=== PATIENT | female | born 2000 | race Caucasian/White ===

== ENCOUNTER 2021-12-02 16:07 | Emergency (ER) | payer MEDICAID ==
[~2021-12-02] VITALS: Ht 165.1 cm; Wt 81.6 kg
--- NOTE | 2021-12-02 17:13 | NUR ---
URINE COLLECTED AND SENT TO THE LAB
[2021-12-02] MEDS ORDERED: IV NS 0.9% 1,000 ML BAG IV ONE (17:30)
--- NOTE | 2021-12-02 17:49 | NUR ---
IV LINE IS ESTABLISHED, BLOOD SPECIMEN COLLECTED AND SENT TO THE LAB. THE LINE IS SALINE LOCKED.
[2021-12-02 18:05] LABS: BASOPHILS % (AUTO) 0.3 % (0.0-2.0); EOSINOPHILS % (AUTO) 0.8 % (0.0-6.0); HEMATOCRIT 33 % (33-45); HEMOGLOBIN 10.6 g/dL (11.5-14.8); LYMPHOCYTES # (AUTO) 1.8 K/uL (0.8-4.8); LYMPHOCYTES % (AUTO) 20.5 % (20.0-44.0); MEAN CORPUSCULAR HGB CONC 33 g/dl (31.0-36.0); MEAN CORPUSCULAR VOLUME 72 fL (82-100); MONOCYTES # (AUTO) 0.4 K/uL (0.1-1.30); MONOCYTES % (AUTO) 4.9 % (2.0-12.0); NEUTROPHILS # (AUTO) 6.5 K/uL (1.8-8.9); NEUTROPHILS % (AUTO) 73.5 % (43.0-81.0); PLATELET COUNT (AUTO) 330 K/uL (150-450); WHITE BLOOD COUNT (AUTO) 8.8 K/uL (4.3-11.0)
[2021-12-02] MEDS ORDERED: FERR325T23 PO (18:31)
[2021-12-02 18:45] LABS: CALCIUM, SERUM 9.5 mg/dL (8.5-10.1); CREATININE 0.5 mg/dL (0.6-1.3); POTASSIUM 4.3 mmol/L (3.5-5.1)
[2021-12-02 18:46] LABS: ALCOHOL, BLOOD < 3 mg/dL (0-0)
[2021-12-02 18:47] LABS: ACETAMINOPHEN < 0 ug/ml (10-30)
[2021-12-02 18:51] LABS: BILIRUBIN,DIRECT 0.2 mg/dL (0.0-0.2); BILIRUBIN,TOTAL 0.6 mg/dL (0.2-1.0); TOTAL PROTEIN, SERUM 7.9 g/dL (6.4-8.2)
--- NOTE | 2021-12-02 19:13 | NUR ---
REPORT GIVEN TO NURSE MOORE FOR JOSH
--- NOTE | 2021-12-02 19:25 | NUR ---
[id number] FRM [facility] C/O LLE PAIN S/P MISSED A STEP AND FALLING. NO GROSS DEFORMITIES OR TRAUMA NOTED TO EXTREMITY. PATIENT AM,BULATORY WITH STEADY GAIT. PT IN GOWN AND V/S STABLE.
--- NOTE | 2021-12-02 19:26 | NUR ---
Patient discharged to home in stable condition. Written and verbal after care instructions given. Patient verbalizes understanding of instruction.
[2021-12-02 19:32] VITALS: BP 112/57
[2021-12-02 20:16] LABS: LYMPHOCYTES % (MANUAL) 19 % (16-48); MONOCYTES % (MANUAL) 2 % (0-11.0); NEUTROPHILS % (MANUAL) 79 (42-76)
== END 2021-12-02 19:33 | disposition home or self-care (01) ==
LOC: ER 16:10
DX: R55 Syncope and collapse (principal); D64.9 Anemia, unspecified; M79.605 Pain in left leg; F32.A Depression, unspecified; W10.9XXA Fall (on) (from) unspecified stairs and steps, initial encounter; Y93.89 Activity, other specified; Y92.89 Other specified places as the place of occurrence of the external cause; Y99.8 Other external cause status
CPT/HCPCS: 36415; 80048; 80076; 80143; 80307; 80320; 82962; 84703; 85007; 85025; 93005; 96360; 99284; J7030; G0480

== ENCOUNTER 2022-11-16 15:35 | Emergency (ER) | payer MEDICAID ==
[~2022-11-16] VITALS: Ht 154.9 cm; Wt 102.1 kg
[~2022-11-16 15:35] MED LIST: FERR325T23 PO
[2022-11-16 15:41] VITALS: BP 146/71
--- NOTE | 2022-11-16 15:41 | NUR ---
Note vickie in EDM - 11/16/22 at 2020 by ANNABEL NICKY [id number] "Right Knee pain denies injury or trauma". PT A/Ox4. Tolerating R/A well with no resp distress. Safety Measures in place.
--- NOTE | 2022-11-16 19:05 | NUR ---
1541 BIBA [id number] "Right Knee pain denies injury or trauma". PT A/Ox4. Tolerating R/A well with no resp distress. Safety Measures in place.
--- NOTE | 2022-11-16 20:19 | NUR ---
Updated Yanely (mother) [phone]
--- NOTE | 2022-11-16 20:28 | NUR ---
PT SIGNED WAIVER FORM; NOTIFIED RADIOLOGY
--- NOTE | 2022-11-16 20:49 | NUR ---
FURNITURE SHAMPOOER AT PT'S BEDSIDE
[2022-11-16] MEDS ORDERED: NAPR-1009 PO (21:45)
[2022-11-16] MEDS ORDERED: ONDANSETRON 4 MG TAB.RAPDIS ONE (21:52)
[2022-11-16] MEDS ORDERED: ONDANSETRON 4 MG TAB.RAPDIS SL ONE (22:00)
[2022-11-16] MEDS ORDERED: NAPROXEN 250 MG TABLET ONE (22:03)
--- NOTE | 2022-11-16 22:16 | NUR ---
Patient discharged to home in stable condition via [facility]. RX Written and verbal after care instructions given. Patient verbalizes understanding of instruction.
[2022-11-16] MEDS ORDERED: NAPROXEN 250 MG TABLET PO ONE (22:30)
== END 2022-11-16 22:17 | disposition home or self-care (01) ==
LOC: ER 20:22
DX: M25.561 Pain in right knee (principal); M25.551 Pain in right hip; Z96.641 Presence of right artificial hip joint
CPT/HCPCS: 99284; 73502; 73564; Q0162